=== PATIENT | male | born 1980 | race Caucasian/White ===

== ENCOUNTER 2020-06-22 14:11 | Emergency (ER) | payer OTHER, SELFPAY ==
--- NOTE | ~2020-06-22 | XR_ITS ---
EXAMINATION: XR hand RT min 3V EXAM DATE: 06/22/2020 14:30 INDICATION: Initial encounter following injury, with pain of the right hand. TECHNIQUE: Right hand frontal, lateral and oblique projections obtained and reviewed. There is no pr ior study for comparison. FINDINGS: Acute closed posttraumatic fracture at the neck of the right 5th metacarpal bone with about 20 degrees of volar angulation. There is overlying soft tissue swelling. No other suspicious findi ngs. IMPRESSION: Acute right boxer's fracture. Reviewed, dictated and finalized at location B.
[2020-06-22 14:24] VITALS: BP 163/103; PULSE 83; RESP 16; TEMP 37.4; O2SAT 100
--- NOTE | 2020-06-22 14:25 | ED.UPPEXIN ---
HPI - Extremity Injury (Upper) General Chief Complaint: Extremity Injury, Upper Stated Complaint: rt hand injury Source: patient Mode of arrival: ambulatory History of Present Illness HPI narrative: Patient is a 40-year-old male who presents complaining of right hand pain. Patient reports pain is 6/10. Patient reports punching a door approximately 3 days ago. Patient denies numbness or tingling in fingers. Reports pain with range of motion. Denies other injuries. MD complaint: injury to: right and hand Related Data Home Medications Medication Instructions Recorded Confirmed No Home Medications 06/22/20 06/22/20 Allergies Allergy/AdvReac Type Severity Reaction Status Date / Time venom-honey bee Allergy Unknown SWELLING Verified 02/27/19 23:09 SLIM SHELLI BEEF STICKS AdvReac Intermediate RASH Uncoded 10/17/15 02:36 DIPHENHYDRAMINE HCL AdvReac Unknown RASH Uncoded 02/27/19 23:09 Review of Systems Review of Systems: Narrative: CONSTITUTIONAL: Denies fever, chills, or sweats. EYES: Denies visual changes, redness, or discharge. ENT: Denies rhinorrhea, congestion, sore throat, or otalgia. CARDIOVASCULAR: Denies chest pain, palpitations, or edema. RESPIRATORY: Denies cough or dyspnea. GASTROINTESTINAL: Denies abdominal pain, nausea, vomiting, or diarrhea. GENITOURINARY: Denies dysuria or hematuria. SKIN: Denies rash or itching. MUSCULOSKELETAL: Denies back pain, or myalgia. Reports right hand pain NEUROLOGIC: Denies headache, numbness, dizziness, or weakness. PSYCHIATRIC: Denies anxiety or depression. [facility] Past Medical History Medical History Anxiety PVCs (premature ventricular contractions) Social History Social History (Updated 06/22/20 @ 14:28 by SHANNON Roman) Smoking status: Current every day smoker Tobacco type: cigarettes Alcohol intake: current Alcohol use details: Socially Living arrangements: with family Occupation/Education: occupation Gender identity (if verbalized by the patient): Male Exam Narrative: Exam Narrative: GENERAL: Well-appearing, well-nourished, and in no acute distress. HEAD: Normocephalic, atraumatic. EYES: EOMI. No redness or drainage. Conjunctiva are normal. ENT: Mucous membranes pink and moist. CHEST: No respiratory distress. Clear to auscultation. HEART: Regular rate and rhythm. No murmur appreciated. Normal peripheral pulses. EXTREMITIES: Ecchymosis and mild edema at distal third, fourth and fifth metacarpal, ecchymosis to third fourth and fifth phalanges, full range of motion, pain with palpation SKIN: Warm, dry, no rash. NEURO: No focal deficits. Alert and oriented x3. Gait steady. PSYCH: Normal affect. No signs of depression or anxiety. Course Vital Signs Vital signs: Vital Signs Temperature 37.4 C 06/22/20 14:24 Pulse Rate 83 06/22/20 14:24 Respiratory Rate 16 06/22/20 14:24 Blood Pressure 163/103 H 06/22/20 14:24 Pulse Oximetry 100 06/22/20 14:24 Temperature 37.4 C 06/22/20 14:24 Pulse Rate 83 06/22/20 14:24 Respiratory Rate 16 06/22/20 14:24 Blood Pressure 163/103 H 06/22/20 14:24 Pulse Oximetry 100 06/22/20 14:24 Reviewed. Patient has been instructed to follow-up with his PCP regarding his blood pressure. Procedures Orthopedic Splinting/Casting Injury #1: Splinting/Casting Date: 06/22/20 Splinting/Casting Time: 14:51 Side: right Upper Extremity Injury Location: hand OCL: other (boxer splint) Pre-Procedure Neuro Vascular Exam: normal Post-Procedure Neuro Vascular Exam: normal Additional Comments: Patient splinted by Tech. Shanta Assessment of splint after placed. MDM - Extremity Injury (Upper) MDM Narrative Medical decision making narrative: Discussed with patient that he has a boxer's fracture and follow up with orthopedics is necessary. Splint applied and instructions on splint care given.
== END 2020-06-22 15:03 | disposition home or self-care (01) ==
PROVIDERS: Emergency Provider Nurse Practitioner
DX: S62.336A Displaced fracture of neck of fifth metacarpal bone, right hand, initial encounter for closed fracture (principal); W22.8XXA Striking against or struck by other objects, initial encounter; F17.210 Nicotine dependence, cigarettes, uncomplicated
CPT/HCPCS: 29125; 73130; 99214; G0463

== ENCOUNTER 2021-08-10 20:02 | Emergency (ER) | payer OTHER, SELFPAY ==
--- NOTE | ~2021-08-10 | XR_ITS ---
EXAMINATION: XR chest 2V DATE: 08/10/2021 20:35 INDICATION: Left-sided chest pain TECHNIQUE: PA and lateral views of the chest were obtained. COMPARISON: Chest radiograph dated 02/28/2019 FINDINGS: The lungs remain clear with no focal airspace opacities, pulmonary edema, pleural effusion or pneumot horax. The cardiomediastinal silhouette is normal. Visualized bones and soft tissues are unremarkable . IMPRESSION: 1. No acute cardiopulmonary disease. Reviewed, dictated and finalized at location A.
--- NOTE | 2021-08-10 20:05 | ECG_ITS ---
Measurements Intervals Babb Rate: 67 P: 70 AR: 160 QRS: 72 QRSD: 89 T: 68 QT: 389 QTc: 412 Interpretive Statements SINUS RHYTHM MINIMAL Q WAVES- ANTEROLAT/INF LEADS BORDERLINE ECG Electronically Signed On 08-11-2021 7:35:16 CDT by Dixon Blankenship D.O.
[2021-08-10 20:16] VITALS: BP 148/97; PULSE 80; RESP 14; TEMP 36.7; O2SAT 100
[2021-08-10 20:22] LABS: Basophils Absolute Auto 0.1 K/mm3 (0.0-0.1); Basophils Percent Auto 0.8 % (0.2-1.2); Eosinophils Absolute Auto 0.2 K/mm3 (0-0.3); Eosinophils Percent Auto 2.5 % (0-4.4); Hematocrit 40.8 % (42.0-52.0); Hemoglobin 14.1 g/dL (14.0-18.0); Immature Granulocyte Absolute 0.03 K/mm3 (0.00-0.031); Immature Granulocyte Percent A 0.4 % (0-0.5); Lymphocytes Absolute Auto 2.43 K/mm3 (0.9-3.2); Lymphocytes Percent Auto 32.3 % (18.3-44.2); Mean Corpuscular HGB Conc 34.6 g/dl (32-36); Mean Corpuscular Volume 92.7 fl (80-100); Mean Platelet Volume 9.9 fl (7.4-10.4); Monocytes Absolute Auto 0.6 K/mm3 (0.1-0.6); Monocytes Percent Auto 7.8 % (2.6-8.5); Neutrophils Absolute Auto 4.2 K/mm3 (1.3-6.7); Neutrophils Percent Auto 56.2 % (45.5-73.1); Platelet Count Result 218 k/mm3 (150-375); Red Cell Distribution Width 14.7 % (11.5-14.5); White Blood Count 7.5 K/mm3 (4.5-10.0)
[2021-08-10 20:31] LABS: Anion Gap 13 mmol/L (8-16); Blood Urea Nitrogen 5 mg/dL (9-20); Calcium 8.9 mg/dL (8.4-10.2); Carbon Dioxide 21 mmol/L (22-30); Chloride 102 mmol/L (98-107); Estimated CRCL calculation 103 ml/min; Estimated Glomerular Filt Rate > 60; Glucose 131 mg/dL (65-110); INR 0.9; Potassium 3.2 mmol/L (3.4-5.0); Prothrombin Time 11.7 Seconds (11.1-14.7); Sodium 136 mmol/L (137-145)
[2021-08-10 20:32] LABS: Partial Thromboplastin Time 29.1 SECONDS (22.3-36.8)
[2021-08-10 20:43] LABS: Troponin I < 0.012 ng/mL (0.000-0.034)
[2021-08-10 21:18] VITALS: PULSE 82
[2021-08-10 21:20] VITALS: BP 146/98; PULSE 80; RESP 18; TEMP 36.6; O2SAT 98
--- NOTE | 2021-08-10 21:34 | PC.NURSE ---
Pt reports played golf today and just couldn't take it any more . c/o sharp, shooting chest pain intermittent x 1 week. denies shortness of breath. c/o nausea at present. denies anything makes it better or worse. reports he called ems tonight. given ASA en route. also c/o hx of anxiety.
--- NOTE | 2021-08-10 21:44 | ED.CHESTPAIN ---
HPI - Chest Pain General Chief Complaint: Chest Pain Stated Complaint: Chest Pain Time Seen by Provider: 08/10/21 21:32 Source: patient Mode of arrival: EMS Limitations: no limitations History of Present Illness HPI narrative: Complains of left anterior chest pain lasting couple of seconds at a time worse with deep breath, worse with playing golf. Associated symptoms equals bilateral hand paresthesia and anxiety. Been going on for the last 5 days increasing in frequency since that time. No shortness of breath, no fever no cough. MD complaint: chest pain Onset (ago): day(s) (5) Timing of current episode: episodic Prior episodes: Yes Onset: during rest and during exertion Pain location: left chest Pain radiation: none Severity: moderate Quality: sharp Relieving factors: nothing Exacerbating factors: inspiration Associated symptoms: palpitations Treatment prior to arrival: none Risk Factors Coronary artery disease risk factors: smoking history and hypertension Related Data Home Medications Medication Instructions Recorded Confirmed No Home Medications 06/22/20 08/10/21 Allergies Allergy/AdvReac Type Severity Reaction Status Date / Time venom-honey bee Allergy Unknown SWELLING Verified 08/10/21 21:23 SLIM SHELLI BEEF STICKS AdvReac Intermediate RASH Uncoded 08/10/21 21:23 DIPHENHYDRAMINE HCL AdvReac Unknown RASH Uncoded 08/10/21 21:23 Review of Systems Review of Systems: CONSTITUTIONAL: no fever, no weight loss, no confusion EYES: no vision changes, no eye pain ENT: no rhinorrhea, no sore throat, no difficulty swallowing CARDIOVASCULAR: chest pain, no leg edema, positive for palpitations RESPIRATORY: no cough, no shortness of breath, no hemoptysis GASTROINTESTINAL: no abdominal pain, no nausea, no vomiting, no diarrhea GENITOURINARY: no flank pain, no dysuria, no hematuria SKIN: no rash, no jaundice MUSCULOSKELETAL: no back pain, no trauma bilateral hand paresthesia NEUROLOGIC: No headache, no dizziness, no focal weakness PSYCHIATRIC: No hallucinations, no suicidal ideation PMFSH Past Medical History Medical History (Updated 08/10/21 @ 21:53 by Ginny Healy MD) Anxiety PVCs (premature ventricular contractions) Social History Social History Smoking status: Current every day smoker Tobacco type: cigarettes Alcohol intake: current Alcohol use details: Socially Gender identity (if verbalized by the patient): Male Exam Narrative: General: alert, afebrile, answering all questions appropriately Head: normocephalic, atraumatic Eyes: EOMI bilaterally, anicteric, no injection ENT: moist mucous membranes, oropharynx patent, no rhinorrhea Neck: supple, trachea midline, no JVD Chest: equal chest rise bilaterally, no chest wall trauma noted Lungs: clear to auscultation bilaterally, respirations unlabored CV: regular rate, no AMINAH B, calf size equal bilaterally EXT: no deformity noted, moving all extremities equally Skin: warm, dry, no pallor Neuro: alert, oriented x 3; CN 2-12 grossly intact, no dysarthria Psych: anxious affect, thought content normal Course Vital Signs Vital signs: Vital Signs Temperature 36.7 C 08/10/21 20:16 Pulse Rate 80 08/10/21 20:16 Respiratory Rate 14 08/10/21 20:16 Blood Pressure 148/97 H 08/10/21 20:16 Pulse Oximetry 100 08/10/21 20:16 Temperature 36.6 C 08/10/21 21:20 Pulse Rate 80 08/10/21 21:20 Respiratory Rate 18 08/10/21 21:20 Blood Pressure 146/98 H 08/10/21 21:20 Pulse Oximetry 98 08/10/21 21:20 MDM - Chest Pain Differential Diagnosis Differential diagnosis: Likely pneumothorax, atypical chest pain, chest pain and biliary colic Medical Records Data Attestation: I reviewed the patient's medical records. Lab Data Attestation: I reviewed the patient's lab results. Lab results narrative: CBC normal, troponin negative after 5 days of chest pain, electrolytes normal ex
[2021-08-10 22:24] VITALS: BP 150/90; PULSE 82; RESP 14; O2SAT 100
[2021-08-10] MEDS: POTASSIUM CHLORIDE 20 MEQ PACKET (FOR LIQUID) 40 MEQ PO (22:24)
== END 2021-08-10 22:24 | disposition home or self-care (01) ==
LOC: ANHED 22:05
PROVIDERS: Emergency Provider Emergency Medicine
DX: R07.89 Other chest pain (principal); E87.6 Hypokalemia; F17.200 Nicotine dependence, unspecified, uncomplicated
CPT/HCPCS: 36415; 71046; 80048; 84484; 85025; 85610; 85730; 93005; 99284; A9270

== ENCOUNTER 2021-09-18 14:41 | Emergency (ER) | payer OTHER, SELFPAY ==
--- NOTE | 2021-09-18 14:46 | ED.ABDPAIN ---
HPI - Abdominal Pain General Chief Complaint: Abdominal Pain Stated Complaint: ABD PAIN/VOMITING/DIARRHEA/R EARACHE/SHAKY Time Seen by Provider: 09/18/21 14:46 Source: patient and RN notes reviewed History of Present Illness HPI narrative: Patient is a 41-year-old male who presents the urgent care with complaints of abdominal cramping/pain, nausea, vomiting, diarrhea. Patient states that started last night. Also reports of a right earache that has been ongoing for couple weeks. Patient states that he has been washing it out . Patient denies of any fevers but states that he has had sweats and chills. Denies of any urinary symptoms. Patient has not taken anything [id number] for his symptoms. Patient states that he has been drinking a protein drink [id number] as well as increasing his fluid intake. Patient states he has had a lot of recent stress in life, getting . No other acute complaints. Patient aware of the plan of care. Some parts of this dictation were generated by voice recognition software and may contain typographical and/or grammatical inaccuracies. Related Data Home Medications Medication Instructions Recorded Confirmed No Home Medications 06/22/20 08/10/21 Allergies Allergy/AdvReac Type Severity Reaction Status Date / Time venom-honey bee Allergy Unknown SWELLING Verified 08/10/21 21:23 SLIM SHELLI BEEF STICKS AdvReac Intermediate RASH Uncoded 08/10/21 21:23 DIPHENHYDRAMINE HCL AdvReac Unknown RASH Uncoded 08/10/21 21:23 Review of Systems Review of Systems: CONSTITUTIONAL: Denies fever, chills, or sweats. EYES: Denies visual changes, redness, or discharge. ENT: Denies rhinorrhea, congestion, sore throat. Reports of right otalgia CARDIOVASCULAR: Denies chest pain, palpitations, or edema. RESPIRATORY: Denies cough or dyspnea. GASTROINTESTINAL: Reports abdominal pain/cramping, nausea, vomiting, diarrhea GENITOURINARY: Denies dysuria or hematuria. SKIN: Denies rash or itching. MUSCULOSKELETAL: Denies back pain, joint pain, or myalgia. NEUROLOGIC: Denies headache, numbness, or weakness. All other systems reviewed are negative, except as documented in HPI. [facility] Past Medical History Medical History (Updated 09/18/21 @ 15:00 by SHANNON Lamb) Anxiety PVCs (premature ventricular contractions) Social History Social History Smoking status: Current every day smoker Tobacco type: cigarettes Alcohol intake: current Alcohol use details: Socially Gender identity (if verbalized by the patient): Male Comments At the time of my signature, I reviewed and agree with the nursing past medical, surgical, social, and family history. There is no relevant family history pertinent to the patient complaint. Exam Narrative: GENERAL: This is a well-nourished, well-developed patient, in no apparent distress. HEAD: normocephalic, atraumatic. EYES: PERRL. Sclera clear/white. Vision is grossly intact. EARS: External ears normal, cerumen noted to right ear canal. Auditory canals clear and without drainage, TMs normal without perforation. Hearing grossly intact. NOSE: External nose normal with no obvious nasal discharge, nares without redness, clear rhinorrhea. THROAT: Mucous membranes moist, posterior pharynx clear. Mild postnasal drainage NECK: Neck supple CARDIOVASCULAR: Regular rate and rhythm without murmurs, gallops, or rubs. RESPIRATORY: Clear to auscultation. Breath sounds equal bilaterally. No wheezes, rales, or rhonchi. GASTROINTESTINAL: Abdomen soft, nondistended. Bowel sounds are hyperactive. Mild midline abdominal tenderness. No guarding. SKIN: warm, intact with no suspicious lesions or rash, good texture and turgor. NEURO: awake, alert, and oriented to person, place and time. There were no obvious focal neurologic abnormalities. EXTREMITIES: No clubbing, cyanosis, or edema. Course Vital Signs Vital signs: Vital Signs
[2021-09-18 14:49] VITALS: BP 184/107; PULSE 77; RESP 16; TEMP 36.9; O2SAT 100
[2021-09-18 14:50] VITALS: BP 184/107; PULSE 77; RESP 16; TEMP 36.9; O2SAT 100
== END 2021-09-18 15:07 | disposition left against medical advice (07) ==
PROVIDERS: Emergency Provider Nurse Practitioner Family
DX: R10.9 Unspecified abdominal pain (principal); R11.10 Vomiting, unspecified; F17.210 Nicotine dependence, cigarettes, uncomplicated
CPT/HCPCS: 99211; G0463

== ENCOUNTER 2025-08-14 10:53 | Emergency (ER) | payer OTHER, SELFPAY ==
--- NOTE | ~2025-08-14 | XR_ITS ---
Examination: XR knee LT min 4V Clinical History: fall, injury yesterday, pain since Comparison: None Technique: 4 views left knee Findings/impression: 1. No fracture, dislocation, or effusion left knee. 2. No degenerative changes. Reviewed, dictated and finalized at location R.
--- NOTE | 2025-08-14 11:13 | ED.LOWEXIN ---
HPI - Extremity Injury (Lower) General Chief Complaint: Extremity Injury, Lower Stated Complaint: Injured L Knee Time Seen by Provider: 08/14/25 11:00 Source: patient and RN notes reviewed Mode of arrival: ambulatory Limitations: no limitations History of Present Illness HPI Narrative: 45-year-old male Presents Express Care complaining of injury to left knee. 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 Patient denies any headache in his head, loss of conscious, neck pain, back pain, or any other injuries. Patient reports some mild swelling to his left knee and pain to the lateral knee. Patient's has been taking ibuprofen with relief. Patient denies any numbness, tingling or any other injuries. Patient denies any significant past medical history. Related Data Home Medications ?Medication ?Instructions ?Recorded ?Confirmed ?Last Taken ?Type No Home Medications 06/22/20 08/14/25 Unknown History Allergies Allergy/AdvReac Type Severity Reaction Status Date / Time venom-honey bee Allergy Unknown SWELLING Verified 08/14/25 11:09 SLIM SHELLI BEEF STICKS AdvReac Intermediate RASH Uncoded 08/10/21 21:23 DIPHENHYDRAMINE HCL AdvReac Unknown RASH Uncoded 08/10/21 21:23 Review of Systems Review of Systems: CONSTITUTIONAL: Denies fever, chills, or sweats. EYES: Denies visual changes, redness, or discharge. ENT: Denies rhinorrhea, congestion, sore throat, or otalgia. CARDIOVASCULAR: Denies chest pain, palpitations, or edema. RESPIRATORY: Denies cough or dyspnea. GASTROINTESTINAL: Denies abdominal pain, nausea, vomiting, or diarrhea. GENITOURINARY: Denies dysuria or hematuria. SKIN: Denies rash, wound, or itching. MUSCULOSKELETAL: Denies back pain, joint pain, or myalgia. Positive for left injury and swelling NEUROLOGIC: Denies headache, numbness, or weakness. PSYCHIATRIC: Denies anxiety or depression. All other systems reviewed are negative, except as documented in HPI. [facility] Past Medical History Medical History (Updated 08/14/25 @ 12:01 by Igor Leon APRN) PVCs (premature ventricular contractions) Anxiety Social History Social History (Reviewed 08/14/25 @ 11:17 by CLINTON Villalpando Smoking status: Current every day smoker Tobacco type: cigarettes Alcohol intake: current Alcohol use details: Socially Living arrangements: with family Occupation/Education: occupation Gender identity (if verbalized by the patient): Male Comments At the time of my signature, I reviewed and agree with the nursing past medical, surgical, social, and family history. There is no relevant family history pertinent to the patient complaint. Exam Narrative: GENERAL: This is a well-nourished, well-developed adult, in no apparent distress. They are non ill-appearing, nontoxic appearing. HEAD: normocephalic, atraumatic. EYES: Sclera clear/white. Vision is grossly intact. Conjunctiva normal. Extraocular movement intact. EARS: External ears normal Hearing grossly intact. NOSE: External nose normal THROAT: Mucous membranes moist NECK: Neck supple CARDIOVASCULAR: Regular rate and rhythm RESPIRATORY: Respiratory rate normal, respiratory effort nonlabored, no respiratory distress NEURO: awake, alert, and oriented to person, place and time. There were no obvious focal neurologic abnormalities. EXTREMITIES: Left knee: No obvious deformity, injury, swelling, bruising, redness. Pain through full range of motion. Laterally tender to palpate. Capillary refill less than 3 seconds. Left popliteal Pulse 2 +palpable. Normal sensation. Neurovascular status intact distal injury. No valgus or varus laxity. Negative anterior drawer test. BACK: Nontender without deformity. Course Course Emergency Course: Portions of this record may have been created with voice recognition software Level of Care: Express Care Visit Vital Signs Vital signs: Reviewed MDM - Extremity Injury (Lower) MDM Narrative Medical decision making narrative: X-ray left knee negative for any fractures or acute findings. Likely knee sprain. Patient given Tonio wrap for compression. Discussed physical exam findings. Advised supportive measures and signs/symptoms to go to the ER. Pt is appropriate for outpt treatment and f/u. Differential Diagnosis Differential diagnosis: Likely other (Knee sprain, knee fracture, the contusion, ligament injury) Imaging Data Radiologist's impression: Findings/impression: 1. No fracture, dislocation, or effusion left knee. 2. No degenerative changes. Critical Care Time Critical Care Time Critical Care Time: No Discharge Plan Discharge Clinical Impression: Injury of knee, left Qualifiers: Encounter type: initial encounter Qualified Code(s): S89.92XA - Unspecified injury of left lower leg, initial encounter Patient Disposition: Home Condition: Stable Instructions: Knee Sprain (ED) Additional Instructions: The x-ray of your left knee is negative for any fractures or acute findings. Rest and elevate the leg; bear weight as tolerated Apply ice 15-20 minute intervals several times a day Keep it wrapped with TONIO reason knee brace You may take ibuprofen 600 mg to 800 mg every 6-8 hours. Do not exceed more than 800 mg of ibuprofen per dose. Do not exceed more than 3200 mg ibuprofen in a day. You may take up to 1000 mg Tylenol every 6-8 hours. Do not exceed 1000 mg per dose, do exceed more than 4000 mg of Tylenol in a day. Follow up with your primary care provider or orthopedist needed in 1-2 weeks specially pain is persisting. Patient Language: Syriac Prescriptions: No Action No Home Medications Follow-up/Referrals: Rene Argueta MD [Physician, Family Practice] Micah You MD [Physician, Orthopedics] Stand Alone Forms: Work/School Release IP Time of Disposition: 11:18
== END 2025-08-14 12:05 | disposition home or self-care (01) ==
DX: S89.92XA Unspecified injury of left lower leg, initial encounter (principal); W01.0XXA Fall on same level from slipping, tripping and stumbling without subsequent striking against object, initial encounter; Y99.0 Civilian activity done for income or pay; F17.210 Nicotine dependence, cigarettes, uncomplicated
CPT/HCPCS: 73564; 99213; G0463